=== PATIENT | female | born 2000 | race Two or more races ===

== ENCOUNTER 2024-05-09 13:15 | Emergency (ER) | payer MEDICAID, SELFPAY ==
[2024-05-09 13:24] VITALS: BP 98/65; PULSE 118; RESP 18; TEMP 37.9; O2SAT 96; BMI 27.3
--- NOTE | 2024-05-09 13:38 | XR_ITS ---
Examination: Pelvic ultrasound, transabdominal, complete Technique: Transabdominal ultrasound of the pelvis performed using grayscale imaging Date and time of exam: 05/09/2024, 2:49 PM INDICATION: Right lower quadrant pain FINDINGS: The uterus measures 7.4 x 3.4 x 5.9 cm and appears normal. Normal-appearing 5 mm endometrial stripe. Right ovary measures 3.2 x 1.9 x 3.0 cm with a 8.5 x 7.0 x 7.8 cm exophytic anechoic cyst. Normal vascular flow to the right ovary. Left ovary measures 4.1 x 2.4 x 2.8 cm with multiple normal-appearing follicles. Normal vascular flow to the left ovary. No evidence of fluid in the cul-de-sac. IMPRESSION: 8.5 x 7.0 x 7.8 cm exophytic anechoic right ovarian cyst.
--- NOTE | 2024-05-09 13:38 | XR_ITS ---
Exam: Chest PA, lateral 2 views Technique: Chest upright PA lateral 2 views Date and time of exam: 05/09/2024, 1:42 PM Cough Findings: Normal heart size. No mediastinal adenopathy. No acute fracture Mild peribronchial thickening. No focal metastases or infiltrate. Impression: Mild peribronchial inflammation. No focal mass or infiltrate
--- NOTE | 2024-05-09 13:40 | PD.EDRME ---
Rapid Medical Screening Exam RME Arrival date/time: 05/09/24 13:15 23 yo f with c/o flu like sx and pelvic pain for 1 week I have greeted and performed a focused initial assessment of this patient. A comprehensive ED assessment and evaluation of the patient, analysis of all test results, and completion of the medical decision making process will be conducted by additional ED providers. Chief Complaint: Flu Like Symptoms Time Seen by Provider: 05/09/24 13:22 Vital signs: Vital Signs Temperature 100.2 F 05/09/24 13:24 Pulse Rate 118 H 05/09/24 13:24 Respiratory Rate 18 05/09/24 13:24 Blood Pressure 98/65 05/09/24 13:24 Pulse Oximetry (%) 96 05/09/24 13:24 Oxygen Delivery Method Room Air 05/09/24 13:24
[2024-05-09] MEDS: ONDANSETRON ODT 4 MG TABRAP PO (13:56)
[2024-05-09] MEDS: ACETAMINOPHEN 500 MG TABLET 1000 MG PO (13:56)
[2024-05-09 14:08] LABS: Collection Type, Urine Voided
[2024-05-09 14:14] LABS: Basophils % (Auto) 0 % (0-2.5); Eosinophils % (Auto) 0 % (0-10); Hematocrit 38.8 % (36.0-46.0); Hemoglobin 12.6 g/dL (12.0-16.0); Immature Granulocytes % (Auto) 0 % (0-0); Immature Granulocytes Auto 0.02 Thou/mm3 (0.00-0.00); Lymphocytes # (Auto) 0.7 Thou/mm3 (1.0-4.8); Lymphocytes % (Auto) 10 % (10-50); Mean Corpuscular HGB Conc 32.5 g/dl (31.0-37.0); Mean Corpuscular Hemoglobin 27.3 pg (25.0-35.0); Mean Corpuscular Volume 84 fL (80-100); Monocytes # (Auto) 0.7 Thou/mm3 (0.0-0.8); Monocytes % (Auto) 10 % (0-12); Neutrophils # (Auto) 5.3 Thou/mm3 (1.8-7.7); Neutrophils % (Auto) 79 % (37-80); Nucleated Red Blood Cell % 0 /100 WBC (0); Platelet Count 240 Thou/mm3 (140-440); RDW Standard Deviation 43.6 fL (36.4-46.3); Red Blood Count 4.62 Miln/mm3 (4.00-5.20); White Blood Count 6.7 Thou/mm3 (3.6-11.0)
[2024-05-09 14:21] LABS: Strep A Rapid Negative (Negative)
[2024-05-09 14:24] LABS: Bacteria,Urine Rare; Bilirubin,Urine Negative (Negative); Blood,Urine 1+ (Negative); Clarity,Urine Clear (Clear/Hazy); Color,Urine Yellow (Lt Yel-Yel); Glucose, Urine Negative (Negative); Ketones,Urine 2+ (Negative); Leukocyte Esterase,Urine Negative (Negative); Nitrite,Urine Negative (Negative); Protein,Urine 1+ (Neg - Trace); RBC,Urine 4 /hpf (0-3); Specific Gravity,Urine 1.035 (1.001-1.035); Squamous Epithelial Cell,Urine 7 /hpf (0-5); Urobilinogen,Urine Negative mg/dL (0.0-1.0); WBC,Urine 2 /hpf (0-5)
[2024-05-09 14:30] LABS: Alanine Aminotransferase 21 U/L (10-49); Albumin, Serum 4.3 gm/dL (3.5-5.0); Albumin/Globulin Ratio 1.6 (1.2-2.2); Alkaline Phosphatase 56 U/L (46-116); Anion Gap 9 (7-16); Aspartate Amino Transferase 45 U/L (0-34); BUN/Creatinine Ratio 10 Ratio (12-20); Bilirubin,Total 0.4 mg/dL (0.3-1.2); Blood Urea Nitrogen 10 mg/dL (9-23); Carbon Dioxide 24.4 mMol/L (20.0-31.0); Chloride 109 mMol/L (98-107); Estimated Creatinine Clearance 98.9 mL/min (>60); Globulin 2.7 gm/dL (2.3-3.5); Glucose 107 mg/dL (74-106); Osmolality,Calculated 282 (275-295); Potassium 3.7 mMol/L (3.4-5.1); Sodium 142 mMol/L (136-145); eGFR > 60 See Note
[2024-05-09 15:07] LABS: HCG,Qualitative Serum Negative
--- NOTE | 2024-05-09 16:03 | EDNOTE_ITS ---
Upper Respiratory Inf. RME/HPI General Chief Complaint: Flu Like Symptoms Stated Complaint: FEVER, CHILLS, VOMITING, Time Seen by Provider: 05/09/24 13:22 Arrival date/time: 05/09/24 13:15 23 year old female present to emergency room with c/o of flu like sx for 1 week. SEVERITY: Symptoms are described as being severe with limitations on activities of daily living CONTEXT: The patient is unable to identify any inciting events. DURATION/TIMING: The symptoms started approximately 7 days ASSOCIATED SYMPTOMS: nausea,vomiting, chills, bodyaches MODIFYING FACTORS: The patient is unable to identify any alleviating or aggravating symptoms. PERTINENT ROS: no cough, no pleuritic pain, no ripping or tearing sensations, denies any lower extremity edema and no unilateral swelling, no chest pain/shortness of breath no no dizziness/headache no rash no loc/syncope episode no abd/back pain no dsyuria,urgency,frequency REVIEW OF SYSTEMS: See History of Present Illness - with the exception of those mentioned in the history of present illness, all other systems reviewed and reported as negative GENERAL: In general the patient is awake, interactive, in an emergency department gurney. HEAD/EYES/EARS/NOSE/THROAT: normo-cephalic, atraumatic, mucus membranes are moist, anicteric, palpebral conjunctiva is pink, trachea is midline. CARDIOVASCULAR:tachycardia , no murmurs, heart sounds are not distant, strong pulses in all four extremities that are equal and symmetric bilateral upper and lower extremities, normal capillary refill. CHEST/PULMONARY: normal chest rise and fall, good air movement, clear to auscultation bilaterally, normal inspiratory to expiratory ratios without evidence of respiratory distress. NECK: No midline/Paraspinal tenderness, no step off ROM/Strenght intact No Kernig and bruzinski sign. No trauma ABDOMEN: soft, not tender, no masses appreciated BACK: normal range of motion without pain. NEUROLOGICAL: cranio-facial features are symmetric, moves all four extremities equally without obvious limitations or weakness. EXTREMITY: no tenderness to palpation over the long bones or large joints of the bilateral upper and lower extremities, no joint swelling, no joint erythema, no signs of trauma, no unilateral leg swelling and no peripheral edema. SKIN: warm, dry, well-perfused, no jaundice, no rash, no telangiectasias or petechia. PSYCH: calm, cooperative, no evidence of psychosis or agitation RME / HPI RME / HPI Narrative: 05/09/24 13:15 23 yo f with c/o flu like sx and pelvic pain for 1 week I have greeted and performed a focused initial assessment of this patient. A comprehensive ED assessment and evaluation of the patient, analysis of all test results, and completion of the medical decision making process will be conducted by additional ED providers. Related Data Previous Rx's ?Medication ?Instructions ?Recorded cephalexin 500 mg capsule 500 mg PO Q6H infection #28 caps 06/14/17 albuterol sulfate 90 mcg/actuation 1 inh inhalation QI D PRN shortness 05/09/24 aerosol inhaler of breath or wheezing #6.7 g keo azithromycin 250 mg tablet See Rx Instructions PO .COM PLEX #6 05/09/24 tabs ibuprofen 800 mg tablet (IBU) 800 mg PO TID PRN fever or pain 05/09/24 #30 tabs ondansetron 4 mg disintegrating 4 mg PO Q8H PRN nausea and 05/09/24 tablet vomiting #20 tabs Allergies Allergy/AdvReac Type Severity Reaction Status Date / Time No Known Allergies Allergy Verified 05/09/24 13:17 Course Course Course Narrative: plan basic labs, xray, covid/flu/strep, urine, US tylenol and zofran Patient presenting with influenza like symptoms.? Obtained influenza A/B screen, which revealed positive influenza.? The following were considered in the patient's differential diagnosis but was not deemed to be consistent with patient's history of present illness and/or physical examination; meningitis, pharyngitis, otitis media,urinary tract infection, peritonsillar abscess, retropharyngeal abscess.? As patient does not present with any signs/symptoms of pneumonia or other complications,? Educated patient on diagnosis and natural course of influenza.? Supportive care and preventive measures were discussed.? Continue fluid hydration. Follow up with primary physician in 3-5 days if symptoms continue or new problems arise. Return if having persistent high fever, altered mental status, shortness of breath, uncontrolled vomiting, or other concerns.? ? Plan:? Prescribed pocket rx azithromycin, zofran and inhaler? Advised patient on support therapies, including rest, advancement of fluids as tolerated, thorough handwashing w/ soap and H2O, taking OTC ibuprofen or acetaminophen as directed, OTC expectorant/antitussive/decongestants as directed. Advised patient to refrain from visiting work, school, or daycares or visiting women, elderly, or those w/ chronic illnesses. Advised patient to return with new or worsening symptoms. Quality Measures none Orders Category Date Time Status Bedside Influenza A&B Antigen Test NOW Care 05/09/24 13:38 Completed US pelvic complete Stat Exams 05/09/24 13:38 Completed XR chest 2V Stat Exams 05/09/24 13:38 Completed CBC Stat Lab 05/09/24 14:02 Completed CMP [Comprehensive Metabolic Panel] Stat Lab 05/09/24 14:02 Completed HCG,Qualitative Serum Stat Lab 05/09/24 14:02 Completed Strep A Rapid Stat Lab 05/09/24 13:44 Completed UA [Urinalysis] Stat Lab 05/09/24 14:00 Completed Acetaminophen Tab [Tylenol ES Tab] Med 05/09/24 13:39 Discontinued 1,000 mg PO X1 ONE Ondansetron Odt [Zofran Odt] Med 05/09/24 13:39 Discontinued 4 mg PO X1 ONE Reevaluation(s) Reevaluation #1: pt is feeling better and comfortable to go home Vital Signs Vital signs: Vital Signs Temperature 100.2 F 05/09/24 13:24 Pulse Rate 118 H 05/09/24 13:24 Respiratory Rate 18 05/09/24 13:24 Blood Pressure 98/65 05/09/24 13:24 Pulse Oximetry (%) 96 05/09/24 13:24 Oxygen Delivery Method Room Air 05/09/24 13:24 Upper Respiratory Infection Patient data External records reviewed:: [facility] previous records Clinical information provided by:: patient and parent Social determinants that could affect healthcare access:: none Patient has the following chronic illnesses:: ovarian cyst How is presenting disease/condition affected by chronic disease/condition?: uneffected by Evaluation data The following diagnostics were reviewed and interpreted by me:: lab results and radiology exam(s) Lab and/or radiology exams considered but not ordered:: none Interpretation Summary: cbc/cmp wnl strep/covid negative + flu urine no infection cxr: Mild peribronchial inflammation. No focal mass or infiltrate us: FINDINGS: The uterus measures 7.4 x 3.4 x 5.9 cm and appears normal. Normal-appearing 5 mm endometrial stripe. Right ovary measures 3.2 x 1.9 x 3.0 cm with a 8.5 x 7.0 x 7.8 cm exophytic anechoic cyst. Normal vascular flow to the right ovary. Left ovary measures 4.1 x 2.4 x 2.8 cm with multiple normal-appearing follicles. Normal vascular flow to the left ovary. No evidence of fluid in the cul-de-sac. IMPRESSION: 8.5 x 7.0 x 7.8 cm exophytic anechoic right ovarian cyst. Medications / Prescriptions Medications or Prescriptions considered but not ordered:: none Medication administrations:: Medication Administration History Discontinued Medications Acetaminophen (Acetaminophen 500 Mg Tablet) 1,000 mg PO X1 ONE Stop: 05/09/24 13:40 Last Admin: 05/09/24 13:56 Dose: 1,000 mg Documented By: MANOJ Ondansetron HCl (Ondansetron Odt 4 Mg Tabrap) 4 mg PO X1 ONE; Protocol Stop: 05/09/24 13:40 Last Admin: 05/09/24 13:56 Dose: 4 mg Documented By: MANOJ as stated above Consultations Consultation(s) initiated? (list below): No Diagnosis Upper Respiratory Differential Diagnosis: upper respiratory infection, viral infection, bronchitis, influenza, pharyngitis and other (UTI, strep, ovarian cyst/rupture , dehydration ) Most likely diagnosis given after review of the tests above:: influenza, ovarian cyst Admission Indicated Admission indicated?: not indicated Admission Request Was there a request for admission?: No Disposition Plan Disposition Plan: Discharge Discharge Attestation Discharge Attestation: The patient and all family members were given an opportunity to ask questions and understood the discharge instructions. Discharge instructions specifically effects, indications for sooner follow up or return to the emergency department, and the expected course of current diagnosis. Patient condition: Stable Discharge Plan Plan Patient Disposition: HOME (Self Care) Health Concerns: Follow with PMD as directed Take tylenol or motrin as need Return to ED if sx worsen Prescriptions/Referrals Prescriptions/Med Rec: New ondansetron 4 mg tablet,disintegrating 4 mg PO Q8H PRN (Reason: nausea and vomiting) Qty: 20 0RF ibuprofen [IBU] 800 mg tablet 800 mg PO TID PRN (Reason: fever or pain) Qty: 30 0RF azithromycin 250 mg tablet See Rx Instructions .ROUTE .COMPLEX Qty: 6 0RF Rx Instructions: For 250 mg dose pack: take 500 mg today (day 1), then 250 mg for 4 days (days 2-5) albuterol sulfate 90 mcg/actuation HFA aerosol inhaler 1 inh inhalation QID PRN (Reason: shortness of breath or wheezing) Qty: 6.7 0RF No Action cephalexin 500 mg capsule 500 mg PO Q6H Qty: 28 0RF Referrals: Ezequiel Lopez MD [Primary Care Provider] - In 1 week Problem List Clinical Impression: Influenza, Ovarian cyst Patient/Caregiver Discharge Instructions Education Materials: ED Influenza (Adult) Print Language: Greenlandic Stand Alone Forms: [employer] Award Info., Patient Portal Info Letter
[2024-05-09 16:09] VITALS: BP 101/69; PULSE 87; RESP 18; TEMP 37.1; O2SAT 100
--- NOTE | 2024-05-09 17:07 | PC.NURSE ---
no answer x 1 at [phone]. checked lobby and outside
--- NOTE | 2024-05-09 17:44 | PC.NURSE ---
patient is a no answer x 3. patient eloped. notified provider.
--- NOTE | 2024-05-09 17:46 | PC.NURSE ---
called patient's cell phone number listed on facesheet. no answer at this time . patient is a no answer in the ER x 3. notified provider.
== END 2024-05-09 17:42 | disposition home or self-care (01) ==
PROVIDERS: Physician Assistant; Emergency Provider Emergency Medicine; PCP Internal Medicine
DX: J11.1 Influenza due to unidentified influenza virus with other respiratory manifestations (principal); N83.201 Unspecified ovarian cyst, right side
CPT/HCPCS: 36415; 71046; 76856; 80053; 81001; 84703; 85025; 87400; 87651; 99284; Q0162; A9270